=== PATIENT | male | born 1980 | race Caucasian/White ===

== ENCOUNTER 2023-12-28 07:48 | Day surgery (SDC) | payer BC ==
[~2023-12-28 07:48] MED LIST: LACTATED RINGERS 1,000 ML IV SCH
[2023-12-28 08:54] VITALS: RESP 18; TEMP 97.5
--- NOTE | 2023-12-28 09:01 | P.PCN ---
Date of Procedure: 12/28/23 Description of Procedure: Procedure: Lumbar Puncture . Preoperative Diagnoses: Idiopathic Intracranial Hypertension Postoperative Diagnosis: same ANESTHESIA: local only EBL: Minimal Condition: stable. Complications: none. Description of the procedure: The patient was brought to the procedure room on the stretcher. After consent was signed. All discussions were had regarding the risks benefits and alternatives to the procedure. After consent was signed, the patient was laid in the left lateral decubitus position. . At that point the level L3/4 was palpated. A 27-gauge needle was used to anesthetize the skin and subcu tissue using 1% lidocaine. After the needle was removed, a 22-gauge spinal needle was placed through the subcutaneous tissue into the spinal canal. The opening pressure was noted to be 15 cm of water, closing pressure was noted to be 14cm of water. The patient did very well. We did discuss potential for a spinal headache and the treatments for that. The patient will be in the recovery room for about one hour.
[2023-12-28 09:43] VITALS: PULSE 78
[2023-12-28 10:34] VITALS: BP 142/76
[2023-12-28 10:36] LABS: Glucose,CSF 55 mg/dL (40-70); Total Protein,CSF 80 mg/dL (12-60)
== END 2023-12-28 10:05 | disposition home or self-care (01) ==
LOC: ORPAIN 07:48
PROVIDERS: ATTEND Hospitalist
DX: G93.2 Benign intracranial hypertension (principal)
CPT/HCPCS: 62270; 82945; 84157; 88108

== ENCOUNTER → 2024-01-09 | Outpatient (CLI) | payer BC ==
--- NOTE | 2024-01-09 22:18 | MR ---
EXAMINATION TYPE: MR brain wo/w con DATE OF EXAM: 01/09/2024 COMPARISON: NONE HISTORY: Eye doctor saw issues with optic nerve, vision getting worse, vertigo, headaches, Left ear p ain with multiple ear infections, forgetful TECHNIQUE: Multiplanar, multisequence images of the brain and brainstem is performed without and with IV contras t, utilizing 12 mL intravenous Gadavist . FINDINGS: Diffusion weighted images demonstrate no evidence of a recent infarct or other diffusion ab normality. There is no extra-axial fluid collection. Incidental 2-3 mm T2 hyperintense focus right f rontal lobe anteriorly axial image 16 The ventricular system and cisternal spaces are normal in size and appearance. The brain volume is age appropriate. Midline structures demonstrate normal morphology. The craniocervical junction appears within normal limits. Post contrast images demonstrate tubular enhancement in the right frontoparietal junction se en best on image 23 and axial image 23 suspicious for vascular anomaly or venous angioma. The dural v enous sinuses appear patent. The visualized sinuses are clear and the globes are intact. No suspiciou s opacification of the mastoid air cells. IMPRESSION: No suspicious findings identified to account for patient's symptoms.
== END | disposition home or self-care (01) ==
LOC: RADMRIMAIN 22:13
PROVIDERS: ATTEND Ophthalmology
DX: H47.333 Pseudopapilledema of optic disc, bilateral (principal); G44.219 Episodic tension-type headache, not intractable; H92.02 Otalgia, left ear; R41.2 Retrograde amnesia; R42 Dizziness and giddiness; R41.3 Other amnesia
CPT/HCPCS: 70553; A9585